=== PATIENT | female | born 1995 | race Caucasian/White ===

== ENCOUNTER 2016-10-30 00:13 | Emergency (ER) | payer MEDICAID ==
[2016-10-30 00:13] VITALS: BMI 22.6
[2016-10-30 00:28] VITALS: BP 117/77; PULSE 87; RESP 18; TEMP 99.3; O2SAT 100
[2016-10-30] MEDS ORDERED: Tmp-Smz 800 mg-160 mg DS Tab PO STA (00:46)
--- NOTE | 2016-10-30 00:53 | ED PDOC ---
Arrival/HPI - General Chief Complaint: Breast Problem Time Seen by Provider: 10/30/16 00:45 Historian: Patient - History of Present Illness Narrative History of Present Illness (Text): 10/30/16 00:49 21 year old female who presents to the ED complaining of a small area of erythema and tenderness to left breast. Patient only complaining of pain with a small pea-sized lump under the area of erythema. Patient states she did not take any medication at home. Patient denies any trauma/injury, fever, chills, chest pain, shortness of breath, or any other complaints Time/Duration: < week (2 days) Symptom Onset: Gradual Symptom Course: Unchanged Activities at Onset: Rest, Light Context: Home Past Medical History - Provider Review Nursing Documentation Reviewed: Yes - Past History Past History: No Previous - Tetanus Immunization Tetanus Immunization: Unknown - Past Medical History Past Medical History: No Previous - Psychiatric Hx Depression: No Hx Emotional Abuse: No Hx Physical Abuse: No Hx Substance Use: No - Past Surgical History Past Surgical History: No Previous - Anesthesia Hx Anesthesia: No - Suicidal Assessment Feels Threatened In Home Enviroment: No Family/Social History - Physician Review Nursing Documentation Reviewed: Yes Family/Social History: Unknown Family HX Smoking Status: Never Smoked Hx Alcohol Use: Yes Frequency of alcohol use: Socially Hx Substance Use: No Hx Substance Use Treatment: No Allergies/Home Meds Allergies/Adverse Reactions: Allergies No Known Allergies Allergy (Verified 10/30/16 00:29) Home Medications: Home Meds Medication Instructions Recorded Confirmed No Known Home Med 06/13/16 10/30/16 Review of Systems - Physician Review All systems were reviewed & negative as marked: Yes - Review of Systems Constitutional: Normal. absent: Fevers Eyes: Normal ENT: Normal Respiratory: Normal. absent: SOB, Cough Cardiovascular: Normal. absent: Chest Pain Gastrointestinal: Normal. absent: Abdominal Pain, Diarrhea, Nausea, Vomiting Genitourinary Female: Normal Musculoskeletal: Normal. absent: Back Pain, Neck Pain Skin: Other (+left breast lump) Neurological: Normal. absent: Headache, Dizziness Endocrine: Normal Hemo/Lymphatic: Normal Psychiatric: Normal Physical Exam Vital Signs Reviewed: Yes Vital Signs Temp Pulse Resp BP Pulse Ox 10/30/16 00:20 99.3 F 87 18 117/77 100 Temperature: Afebrile Blood Pressure: Normal Pulse: Regular Respiratory Rate: Normal Appearance: Positive for: Well-Appearing, Non-Toxic, Comfortable Pain Distress: None Mental Status: Positive for: Alert and Oriented X 3 - Systems Exam Head: Present: Atraumatic, Normocephalic Pupils: Present: PERRL Extroacular Muscles: Present: EOMI Conjunctiva: Present: Normal Mouth: Present: Moist Mucous Membranes Neck: Present: Normal Range of Motion Respiratory/Chest: Present: Clear to Auscultation, Good Air Exchange. No: Respiratory Distress, Accessory Muscle Use Cardiovascular: Present: Regular Rate and Rhythm, Normal S1, S2. No: Murmurs Abdomen: Present: Normal Bowel Sounds. No: Tenderness, Distention, Peritoneal Signs Breast/Axillary: Present: Erythema (Quarter-sized of erythema to LUQ of left breast, small pea-sized indurated lump underneath erythema, left nipple piercing , RN Obioma present as property supervisor). No: Axillary Lymphad, Masses, Nipple Discharge Upper Extremity: Present: Normal Inspection. No: Cyanosis, Edema Lower Extremity: Present: Normal Inspection. No: Edema Neurological: Present: GCS=15, Speech Normal Skin: Present: Warm, Dry, Normal Color. No: Rashes Lymphatic: No: Axillary Adenopathy Psychiatric: Present: Alert, Oriented x 3, Normal Insight, Normal Concentration Medical Decision Making ED Course and Treatment: 10/30/16 00:50 Impression: 21 year old female c/o left breast area of erythema, tenderness, with small pea- sized area underneath x2 days. Differential Diagnosis included but are not limited to: cellulitis vs. abscess Plan: -- Bactrim -- Keflex - Reassess and disposition Progress Notes: Motrin for pain Warm compresses to the area. Pt instructed to follow up with surgeon/breast specialist, or to return for new/ concerning symptoms. - Medication Orders Current Medication Orders: Cephalexin Monohydrate (Keflex) 500 mg PO STAT STA PRN Reason: Protocol Stop: 10/30/16 00:47 Trimethoprim/Sulfamethoxazole (Bactrim Ds Tab) 1 tab PO STAT STA PRN Reason: Protocol Stop: 10/30/16 00:47 - Scribe Statement The provider has reviewed the documentation as recorded by the Kelly Mark Provider Scribe Attestation: All medical record entries made by the Scribe were at my direction and personally dictated by me. I have reviewed the chart and agree that the record accurately reflects my personal performance of the history, physical exam, medical decision making, and the department course for this patient. I have also personally directed, reviewed, and agree with the discharge instructions and disposition. Disposition/Present on Arrival - Present on Arrival History of DVT/PE: No History of Uncontrolled Diabetes: No Urinary Catheter: No History of Decub. Ulcer: No History Surgical Site Infection Following: None - Disposition
--- NOTE | 2016-10-30 01:36 | ED PDOC ---
Arrival/HPI - General Chief Complaint: Breast Problem Time Seen by Provider: 10/30/16 00:45 Historian: Patient - History of Present Illness Narrative History of Present Illness (Text): 10/30/16 00:46 21 year old female who presents to the ED complaining of a small area of erythema and tenderness to left breast. Patient only complaining of pain with a small pea-sized lump under the area of erythema. Patient states she did not take any medication at home. Patient denies any trauma/injury, fever, chills, chest pain, shortness of breath, or any other complaints. Time/Duration: < week (2 days), Other (2 days) Symptom Onset: Gradual Symptom Course: Unchanged Activities at Onset: Light Context: Home Past Medical History - Provider Review Nursing Documentation Reviewed: Yes - Past History Past History: No Previous - Tetanus Immunization Tetanus Immunization: Unknown - Past Medical History Past Medical History: No Previous - Psychiatric Hx Depression: No Hx Emotional Abuse: No Hx Physical Abuse: No Hx Substance Use: No - Past Surgical History Past Surgical History: No Previous - Anesthesia Hx Anesthesia: No - Suicidal Assessment Feels Threatened In Home Enviroment: No Family/Social History - Physician Review Nursing Documentation Reviewed: Yes Family/Social History: Unknown Family HX Smoking Status: Never Smoked Hx Alcohol Use: Yes Frequency of alcohol use: Socially Hx Substance Use: No Hx Substance Use Treatment: No Allergies/Home Meds Allergies/Adverse Reactions: Allergies No Known Allergies Allergy (Verified 10/30/16 00:29) Review of Systems - Physician Review All systems were reviewed & negative as marked: Yes - Review of Systems Constitutional: Normal. absent: Fevers Eyes: Normal ENT: Normal Respiratory: Normal. absent: SOB, Cough Cardiovascular: Normal. absent: Chest Pain Gastrointestinal: Normal. absent: Abdominal Pain, Diarrhea Genitourinary Female: Normal Musculoskeletal: Normal. absent: Back Pain, Neck Pain Skin: Other (+left breast lump). absent: Rash Neurological: Normal Endocrine: Normal Hemo/Lymphatic: Normal Psychiatric: Normal Physical Exam Vital Signs Reviewed: Yes Vital Signs Temp Pulse Resp BP Pulse Ox 10/30/16 00:20 99.3 F 87 18 117/77 100 Temperature: Afebrile Blood Pressure: Normal Pulse: Regular Respiratory Rate: Normal Appearance: Positive for: Well-Appearing, Non-Toxic, Comfortable Pain Distress: None Mental Status: Positive for: Alert and Oriented X 3 - Systems Exam Head: Present: Atraumatic, Normocephalic Pupils: Present: PERRL Extroacular Muscles: Present: EOMI Conjunctiva: Present: Normal Mouth: Present: Moist Mucous Membranes Neck: Present: Normal Range of Motion Respiratory/Chest: Present: Clear to Auscultation, Good Air Exchange. No: Respiratory Distress, Accessory Muscle Use Cardiovascular: Present: Regular Rate and Rhythm, Normal S1, S2. No: Murmurs Abdomen: Present: Normal Bowel Sounds. No: Tenderness, Distention, Peritoneal Signs Breast/Axillary: Present: Erythema (Quarter-sized of erythema to LUQ of left breast, small pea-sized indurated lump underneath erythema, left nipple piercing , RN Obioma present as cook helper vegetable). No: Axillary Lymphad, Masses, Nipple Discharge, Tender to Palpation Back: Present: Normal Inspection Upper Extremity: Present: Normal Inspection. No: Cyanosis, Edema Lower Extremity: Present: Normal Inspection. No: Edema Neurological: Present: GCS=15, CN II-XII Intact, Speech Normal Skin: Present: Warm, Dry, Normal Color. No: Rashes Psychiatric: Present: Alert, Oriented x 3, Normal Insight, Normal Concentration Medical Decision Making ED Course and Treatment: 10/30/16 00:46 Impression: 21 year old female c/o left breast area of erythema, tenderness, with small pea- sized area underneath x2 days. Differential Diagnosis included but are not limited to: cellulitis vs. abscess Plan: -- Bactrim -- Keflex Progress Notes: I advised patient of concern for early abscess vs local skin infection; advised bactrim and keflex, warm compressed; i advised f/u with surgeon/breast specialist; i advised immediate return if symptoms worsen,persist or if new symptoms develop. stressed importance of close f/u. Patient verbalized full agreement with and understanding of discharge instructions. States that he agrees with the plan and disposition. Verbalized and repeated discharge instructions and plan. I have given the patient opportunity to ask any additional questions. all aspects of this case were discussed the attending of record. Impression: Breast cellulitis, early abscess Motrin every 6 hours as needed for pain Bactrim 1 tablet twice daily 7 days Keflex 1 capsule 4 times daily 7 days Warm compresses frequently Follow-up with her primary care physician within the next 2 days Follow-up with a surgeon within the next 2 days Follow-up with a breast specialist within the next 2 days Return immediately if symptoms worsen or persist or if new symptoms develop: High fevers, increasing pain, increasing redness, increasing swelling or for any other concerning symptoms develop - Medication Orders Current Medication Orders: Discontinued Medications Cephalexin Monohydrate (Keflex) 500 mg PO STAT STA PRN Reason: Protocol Stop: 10/30/16 00:47 Last Admin: 10/30/16 01:06 Dose: 500 mg Trimethoprim/Sulfamethoxazole (Bactrim Ds Tab) 1 tab PO STAT STA PRN Reason: Protocol Stop: 10/30/16 00:47 Last Admin: 10/30/16 01:05 Dose: 1 tab - Scribe Statement The provider has reviewed the documentation as recorded by the Kelly Mark Provider Scribe Attestation: All medical record entries made by the Scribe were at my direction and personally dictated by me. I have reviewed the chart and agree that the record accurately reflects my personal performance of the history, physical exam, medical decision making, and the department course for this patient. I have also personally directed, reviewed, and agree with the discharge instructions and disposition. Disposition/Present on Arrival - Present on Arrival Any Indicators Present on Arrival: No History of DVT/PE: No History of Uncontrolled Diabetes: No Urinary Catheter: No History of Decub. Ulcer: No History Surgical Site Infection Following: None - Disposition Have Diagnosis and Disposition been Completed?: Yes Diagnosis: Cellulitis of breast, Abscess Disposition: HOME/ ROUTINE Disposition Time: 00:47 Condition: GOOD Discharge Instructions (ExitCare): Cellulitis (ED), Abscess (ED) Additional Instructions: Motrin every 6 hours as needed for pain Bactrim 1 tablet twice daily 7 days Keflex 1 capsule 4 times daily 7 days Warm compresses frequently Follow-up with her primary care physician within the next 2 days Follow-up with a surgeon within the next 2 days Follow-up with a breast specialist within the next 2 days Return immediately if symptoms worsen or persist or if new symptoms develop: High fevers, increasing pain, increasing redness, increasing swelling or for any other concerning symptoms develop Prescriptions: Cephalexin [Keflex] 500 mg PO QID #28 capsule Ibuprofen [Motrin] 600 mg PO Q6H PRN #20 tab PRN Reason: pain/fever reduction Sulfamethoxazole/Trimethoprim [Bactrim DS 800 mg-160 mg] 1 tab PO BID #14 tab Referrals: Gordon Walker MD [Staff Provider] - Follow up with primary Loc Willams MD [Staff Provider] - Follow up with primary Forms: WORK NOTE
== END 2016-10-30 01:19 | disposition home or self-care (01) ==
LOC: ED 00:13
DX: N61.1 Abscess of the breast and nipple (principal)

== ENCOUNTER 2017-09-11 18:51 | Emergency (ER) | payer MEDICAID ==
[2017-09-11 18:51] VITALS: BMI 22.6
[2017-09-11 18:58] VITALS: TEMP 98.9
--- NOTE | 2017-09-11 19:36 | ED PDOC ---
Arrival/HPI - General Chief Complaint: Female Genitourinary Time Seen by Provider: 09/11/17 19:24 Historian: Patient - History of Present Illness Narrative History of Present Illness (Text): 09/11/17 19:33 22 year old female, with past medical history of UTI, presents to the Emergency department complaining of dysuria and hematuria that started today. Patient additionally informs associated mild lower abdominal discomfort but denies any fever, chills, nausea, vomiting, diarrhea, chest pain, shortness of breath, vaginal bleeding, abnormal vaginal discharge or any other complaints. Patient presents to the Emergency department for medical evaluation. Time/Duration: Other (today) Symptom Onset: Gradual Symptom Course: Unchanged Quality: Cramping Activities at Onset: Light Context: Home Past Medical History - Provider Review Nursing Documentation Reviewed: Yes - Travel History Have you recently traveled outside [place] w/in the past 3 mons?: No - Past History Past History: No Previous - Tetanus Immunization Tetanus Immunization: Unknown - Past Medical History Past Medical History: No Previous - Cardiac Hx Cardiac Disorders: No - Pulmonary Hx Respiratory Disorders: No - Neurological Hx Neurological Disorder: No - HEENT Hx HEENT Disorder: No - Renal Hx Renal Disorder: No - Endocrine/Metabolic Hx Endocrine Disorders: No - Hematological/Oncological Hx Blood Disorders: No - Integumentary Hx Dermatological Disorder: No - Musculoskeletal/Rheumatological Hx Musculoskeletal Disorders: No - Gastrointestinal Hx Gastrointestinal Disorders: No - Genitourinary/Gynecological Hx Genitourinary Disorders: Yes Hx Urinary Tract Infection: Yes - Psychiatric Hx Psychophysiologic Disorder: No Hx Substance Use: No - Past Surgical History Past Surgical History: No Previous - Anesthesia Hx Anesthesia: No - Suicidal Assessment Feels Threatened In Home Enviroment: No Family/Social History - Physician Review Nursing Documentation Reviewed: Yes Family/Social History: Unknown Family HX Smoking Status: Never Smoked Hx Alcohol Use: Yes Hx Substance Use: No Hx Substance Use Treatment: No Allergies/Home Meds Allergies/Adverse Reactions: Allergies No Known Allergies Allergy (Verified 09/11/17 18:53) Review of Systems - Physician Review All systems were reviewed & negative as marked: Yes - Review of Systems Constitutional: Normal. absent: Fevers Respiratory: absent: SOB, Cough Cardiovascular: Normal. absent: Chest Pain, Palpitations Gastrointestinal: Abdominal Pain (mild lower abdominal pain). absent: Diarrhea , Nausea, Vomiting Genitourinary Female: Dysuria, Hematuria. absent: Vaginal Bleeding, Vaginal Discharge Musculoskeletal: absent: Arthralgias, Back Pain, Neck Pain Skin: absent: Rash, Pruritis Neurological: absent: Headache, Dizziness Psychiatric: absent: Depression, Suicidal Ideation Physical Exam Vital Signs Reviewed: Yes Vital Signs Temp Pulse Resp BP Pulse Ox 09/11/17 18:53 98.9 F 90 16 115/75 100 Temperature: Afebrile Blood Pressure: Normal Pulse: Regular Respiratory Rate: Normal Appearance: Positive for: Well-Appearing, Non-Toxic, Comfortable Pain Distress: None Mental Status: Positive for: Alert and Oriented X 3 - Systems Exam Head: Present: Atraumatic, Normocephalic Respiratory/Chest: Present: Clear to Auscultation, Good Air Exchange. No: Respiratory Distress, Accessory Muscle Use Cardiovascular: Present: Regular Rate and Rhythm, Normal S1, S2. No: Murmurs Abdomen: Present: Normal Bowel Sounds. No: Tenderness, Distention, Peritoneal Signs, Rebound, Guarding Back: Present: Normal Inspection. No: CVA Tenderness, Midline Tenderness, Paraspinal Tenderness Upper Extremity: Present: Normal Inspection. No: Cyanosis, Edema Lower Extremity: Present: Normal Inspection. No: Edema Neurological: Present: GCS=15, Speech Normal Skin: Present: Warm, Dry, Normal Color. No: Rashes Psychiatric: Present: Alert, Oriented x 3 Medical Decision Making ED Course and Treatment: 09/11/17 19:37 2 year old female presents to the Emergency department for dysuria and hematuria since today. Plan: -- Urine Culture -- Urinalysis -- Reassess and disposition Progress Notes: Patient is nontoxic well-appearing in no distress with stable vital signs keflex PO Urinalysis + leukocytes Urine culture: pending advised follow up with the primary care physician within the next 2 days. advised immediate return if symptoms worsen,persist or if new symptoms develop. Patient verbalizes understanding of discharge instructions and need for immediate followup. all aspects of this case were discussed the attending of record. Impression: Urinary tract infection Motrin every 6 hours as needed for pain Keflex; one tablet twice daily x7 days Pyridium one tablet twice daily x3 days Followup with primary care physician within the next 2 days Follow up with the urologist for the next 2 days Return if symptoms worsen persist or if new symptoms develop - Lab Interpretations Lab Results: Lab Results 09/11/17 19:33: Urine Color Yellow, Urine Appearance Cloudy, Urine pH 6.5, Ur Specific [place] 1.025, Urine Protein 100 H, Urine Glucose (UA) Negative, Urine Ketones Trace H, Urine Blood Large H, Urine Nitrate Negative, Urine Bilirubin Negative, Urine Urobilinogen 1.0 H, Ur Leukocyte Esterase Moderate H, Urine RBC Tntc, Urine WBC 15 - 20, Ur Epithelial Cells 0 - 2, Urine Bacteria Trace - Medication Orders Current Medication Orders: Cephalexin Monohydrate (Keflex) 500 mg PO STAT STA PRN Reason: Protocol Stop: 09/11/17 20:20 - Scribe Statement The provider has reviewed the documentation as recorded by the Scribe Selena Elmore. All medical record entries made by the Scribe were at my direction and personally dictated by me. I have reviewed the chart and agree that the record accurately reflects my personal performance of the history, physical exam, medical decision making, and the department course for this patient. I have also personally directed, reviewed, and agree with the discharge instructions and disposition. Disposition/Present on Arrival - Present on Arrival Any Indicators Present on Arrival: No History of DVT/PE: No History of Uncontrolled Diabetes: No Urinary Catheter: No History of Decub. Ulcer: No History Surgical Site Infection Following: None - Disposition Have Diagnosis and Disposition been Completed?: Yes Diagnosis: Urinary tract infection Disposition: HOME/ ROUTINE Disposition Time: 20:24 Patient Plan: Discharge Condition: GOOD Discharge Instructions (ExitCare): Urinary Tract Infections in Adults Additional Instructions: Motrin every 6 hours as needed for pain Keflex; one tablet twice daily x7 days Pyridium one tablet twice daily x3 days Followup with primary care physician within the next 2 days Follow up with the urologist for the next 2 days Return if symptoms worsen persist or if new symptoms develop Prescriptions: Cephalexin [Keflex] 500 mg PO BID #14 capsule Phenazopyridine [Phenazopyridine HCl] 200 mg PO BID #6 tab Referrals: Amalia Goncalves MD [Primary Care Provider] - Follow up with primary Mina Johnson MD [Staff Provider] - Follow up with primary Forms: [facility] (Amharic), WORK NOTE
[2017-09-11 19:53] LABS: PH,URINE 6.5 (4.7-8.0); URINE BILIRUBIN NEGATIVE (NEGATIVE); URINE BLOOD LARGE (NEGATIVE); URINE GLUCOSE (UA) NEGATIVE (NEGATIVE); URINE LEUKOCYTE ESTERASE MODERATE Leu/uL (NEGATIVE); URINE PROTEIN 100 mg/dL (<30 mg/dL)
[2017-09-11 19:56] LABS: URINE APPEARANCE CLOUDY (CLEAR); URINE COLOR YELLOW (YELLOW)
[2017-09-11 20:02] LABS: URINE BACTERIA TRACE (NEG); URINE EPITHELIAL CELLS 0 - 2 /hpf (0-5); URINE RBC TNTC /hpf (0-2); URINE WBC 15 - 20 /hpf (0-6)
[2017-09-11 20:56] VITALS: BP 118/82; PULSE 85; RESP 18; O2SAT 98
== END 2017-09-11 20:47 | disposition home or self-care (01) ==
LOC: ED 18:51
DX: N39.0 Urinary tract infection, site not specified (principal)

== ENCOUNTER 2018-07-25 00:47 | Emergency (ER) | payer MEDICAID, OTHER ==
[2018-07-25 01:20] VITALS: RESP 18; TEMP 98.2; O2SAT 100; BMI 25.7
[2018-07-25] MEDS ORDERED: cefTRIAXone (Rocephin) 250 mg Inj IM STA (01:40)
--- NOTE | 2018-07-25 01:51 | ED PDOC ---
Arrival/HPI - General Historian: Patient - History of Present Illness Narrative History of Present Illness (Text): Patient is a 23 year old female with no significant past history presenting with chief complaint of vaginal spotting and brown colored discharge beginning two days prior after she was sexually active. She states she did use a condom for protection. She also admits to mild itching and occasional burning. Denies fevers, chills, chest pain, shortness of breath, abdominal pain, diarrhea, dysuria. Time/Duration: < week Symptom Onset: Sudden Symptom Course: Unchanged Quality: Burning <Rosie Adamson - Last Filed: 07/25/18 02:24> <Ed Waddell - Last Filed: 07/25/18 19:16> - General Chief Complaint: Abdominal Pain Time Seen by Provider: 07/25/18 01:20 Past Medical History - Provider Review Nursing Documentation Reviewed: Yes - Past History Past History: No Previous - Tetanus Immunization Tetanus Immunization: Unknown - Past Medical History Past Medical History: No Previous - Cardiac Hx Cardiac Disorders: No - Pulmonary Hx Respiratory Disorders: No - Neurological Hx Neurological Disorder: No - HEENT Hx HEENT Disorder: No - Renal Hx Renal Disorder: No - Endocrine/Metabolic Hx Endocrine Disorders: No - Hematological/Oncological Hx Blood Disorders: No - Integumentary Hx Dermatological Disorder: No - Musculoskeletal/Rheumatological Hx Musculoskeletal Disorders: No - Gastrointestinal Hx Gastrointestinal Disorders: No - Genitourinary/Gynecological Hx Genitourinary Disorders: Yes Hx Urinary Tract Infection: Yes - Psychiatric Hx Psychophysiologic Disorder: No Hx Substance Use: No - Past Surgical History Past Surgical History: No Previous - Anesthesia Hx Anesthesia: No - Suicidal Assessment Feels Threatened In Home Enviroment: No <Rosie Adamson - Last Filed: 07/25/18 02:24> Family/Social History - Physician Review Nursing Documentation Reviewed: Yes Family/Social History: No Known Family HX Smoking Status: Never Smoked Hx Alcohol Use: Yes Frequency of alcohol use: Socially Hx Substance Use: No Hx Substance Use Treatment: No <Rosie Adamson - Last Filed: 07/25/18 02:24> Allergies/Home Meds <Rosie Adamson - Last Filed: 07/25/18 02:24> <Ed Waddell - Last Filed: 07/25/18 19:16> Allergies/Adverse Reactions: Allergies No Known Allergies Allergy (Verified 09/11/17 18:53) Home Medications: Home Meds Medication Instructions Recorded Confirmed No Known Home Med 07/25/18 07/25/18 Review of Systems - Physician Review All systems were reviewed & negative as marked: Yes - Review of Systems Respiratory: Normal Cardiovascular: Normal Gastrointestinal: Normal Genitourinary Female: Vaginal Bleeding, Vaginal Discharge <Rosie Adamson - Last Filed: 07/25/18 02:24> Physical Exam Vital Signs Reviewed: Yes Vital Signs Temp Pulse Resp BP Pulse Ox 07/25/18 01:19 98.2 F 92 H 18 123/72 100 Temperature: Afebrile Blood Pressure: Normal Pulse: Regular Respiratory Rate: Normal Appearance: Positive for: Well-Appearing, Comfortable Pain Distress: None Mental Status: Positive for: Alert and Oriented X 3 - Systems Exam Head: Present: Atraumatic, Normocephalic Extroacular Muscles: Present: EOMI Conjunctiva: Present: Normal Mouth: Present: Moist Mucous Membranes Respiratory/Chest: Present: Clear to Auscultation, Good Air Exchange. No: Respiratory Distress, Accessory Muscle Use Cardiovascular: Present: Regular Rate and Rhythm, Normal S1, S2. No: Murmurs, Tachycardic Abdomen: Present: Normal Bowel Sounds. No: Tenderness, Distention Genitourinary/Pelvic Exam: Present: Normal External Genitalia, Vaginal Discharge (white, cottage cheese like ) Neurological: Present: GCS=15, CN II-XII Intact, Speech Normal Skin: Present: Warm, Normal Color Psychiatric: Present: Alert, Oriented x 3 <Rosie Adamson - Last Filed: 07/25/18 02:24> Vital Signs Temp Pulse Resp BP Pulse Ox 07/25/18 01:19 98.2 F 92 H 18 123/72 100 <Ed Waddell - Last Filed: 07/25/18 19:16> Medical Decision Making ED Course and Treatment: Impression: 23 year old female with vaginal discharge Plan: - gonorrhea/chlamydia - azithromycin - rocephin - diflucan - Reassess and disposition Prior Visits: Notes and results from previous visits were reviewed. Progress Notes: Patient states she will follow up with [facility] on Thursday. Patient appears comfortable, is hemodynamically stable. - Medication Orders Current Medication Orders: Azithromycin (Zithromax) 1,000 mg PO STAT STA; Protocol Stop: 07/25/18 01:41 Ceftriaxone Sodium (Rocephin) 250 mg IM STAT STA; Protocol Stop: 07/25/18 01:41 Fluconazole (Diflucan) 150 mg PO STAT STA; Protocol Stop: 07/25/18 01:41 <Rosie Adamson - Last Filed: 07/25/18 02:24> ED Course and Treatment: Impression: Pt seen and evaluated with medical manager. Aware and agree with HPI, clinical findings, plan, and management. Pt, with no significant past medical history, presented for vaginal spotting and brown vaginal discharge after having sexual intercourse 2 days ago. Plan: -- Chlamydia/GC RNA -- UA -- Diflucan -- Rocephin -- Zithromax -- Reassess and disposition Progress Notes: - Medication Orders Current Medication Orders: Discontinued Medications Azithromycin (Zithromax) 1,000 mg PO STAT STA; Protocol Stop: 07/25/18 01:41 Ceftriaxone Sodium (Rocephin) 250 mg IM STAT STA; Protocol Stop: 07/25/18 01:41 Fluconazole (Diflucan) 150 mg PO STAT STA; Protocol Stop: 07/25/18 01:41 <Ed Waddell - Last Filed: 07/25/18 19:16> - PA / SUPERVISORY CLERK / Resident Statement NIDHI has reviewed & agrees with the documentation as recorded. NIDHI has examined the patient and agrees with the treatment plan. <Ed Waddell - Last Filed: 07/25/18 19:16> Disposition/Present on Arrival - Present on Arrival Any Indicators Present on Arrival: No History of DVT/PE: No History of Uncontrolled Diabetes: No Urinary Catheter: No History of Decub. Ulcer: No History Surgical Site Infection Following: None - Disposition Have Diagnosis and Disposition been Completed?: Yes Disposition Time: 01:58 Patient Plan: Discharge <Rosie Adamson - Last Filed: 07/25/18 02:24> <Ed Waddell - Last Filed: 07/25/18 19:16> - Disposition Diagnosis: Vaginal discharge Disposition: HOME/ ROUTINE Condition: STABLE Discharge Instructions (ExitCare): Vaginal Discharge in Adults Additional Instructions: Please follow up with your [facility] within 3-5 days. Refrain from being sexually active until results of your gonorrhea/chlamydia testing is confirmed. Return to ED if symptoms worsen. Forms: [employer] (Bulgarian)
[2018-07-25 02:04] LABS: PH,URINE 6.5 (4.7-8.0); URINE BILIRUBIN NEGATIVE (NEGATIVE); URINE BLOOD LARGE (NEGATIVE); URINE GLUCOSE (UA) NEGATIVE (NEGATIVE); URINE LEUKOCYTE ESTERASE SMALL Leu/uL (NEGATIVE); URINE PROTEIN TRACE mg/dL (<30 mg/dL); URINE UROBILINOGEN 0.2 E.U./dL (<1 E.U./dL)
[2018-07-25] MEDS ORDERED: Lidocaine 1% Inj (20ml) ONE (02:11)
[2018-07-25 02:24] LABS: URINE APPEARANCE SL CLOUDY (CLEAR); URINE COLOR YELLOW (YELLOW)
[2018-07-25 02:26] LABS: URINE BACTERIA MOD /hpf
[2018-07-25 03:00] VITALS: BP 125/85; PULSE 95
== END 2018-07-25 02:35 | disposition home or self-care (01) ==
LOC: ED 00:47
DX: N89.8 Other specified noninflammatory disorders of vagina (principal)
CPT/HCPCS: 81001; 81025; 87491; 87591; 96372; 99284; J0696